=== PATIENT | female | born 1955 | race Caucasian/White ===

== ENCOUNTER 2018-11-23 08:57 | Day surgery (SDC) | payer OTHER ==
[2018-11-23 10:01] LABS: ADD MAN DIFF? NO
[2018-11-23 10:04] LABS: WHITE BLOOD COUNT 7.4 10^3/ul (4.8-10.8)
[2018-11-23 10:04] LABS: BASOPHILS % 0.4 % (0.0-2.0); EOSINOPHILS # 0.1 10^3/ul (0.0-0.5); EOSINOPHILS % 1.1 % (0.0-7.0); HEMATOCRIT 41.1 % (37.0-47.0); HEMOGLOBIN 13.5 g/dl (12.0-16.0); LYMPHOCYTES # 2.2 10^3/ul (0.8-2.9); LYMPHOCYTES % 29.9 % (15.0-51.0); MEAN CORPUSCULAR HEMOGLOBIN 29.2 pg (29.0-33.0); MEAN CORPUSCULAR HGB CONC 32.8 g/dl (32.0-37.0); MEAN PLATELET VOLUME 9.8 fl (7.4-10.4); MONOCYTE # 0.5 10^3/ul (0.3-0.9); MONOCYTES % 7.2 % (0.0-11.0); NEUTROPHIL # 4.5 10^3/ul (1.6-7.5); NEUTROPHILS % 61.1 % (39.0-77.0); PLATELET COUNT 248 10^3/UL (140-415); RED BLOOD COUNT 4.62 10^6/ul (4.20-5.40); RED CELL DISTRIBUTION WIDTH 12.8 % (11.5-14.5)
[2018-11-23 10:26] LABS: ALANINE AMINOTRANSFERASE 23 IU/L (13-69); ALBUMIN 4.2 g/dl (3.3-4.9); ALBUMIN/GLOBULIN RATIO 1.31; ALKALINE PHOSPHATASE 66 IU/L (42-121); ANION GAP 7 (5-13); ASPARTATE AMINO TRANSFERASE 25 IU/L (15-46); BILIRUBIN,INDIRECT 0.5 mg/dl (0-1.1); BILIRUBIN,TOTAL 0.5 mg/dl (0.2-1.3); BLOOD UREA NITROGEN 19 mg/dl (7-20); CALCIUM 9.9 mg/dl (8.4-10.2); CARBON DIOXIDE 30 mmol/L (21-31); CHLORIDE 104 mmol/L (97-110); Estimated GFR 55 mL/min (>60); GLUCOSE 99 mg/dl (70-220); POTASSIUM 4.7 mmol/L (3.5-5.1); SODIUM 141 mmol/L (135-144); TOTAL PROTEIN 7.4 g/dl (6.1-8.1)
[2018-11-23 10:28] LABS: CREATININE 1.02 mg/dl (0.44-1.00)
[2018-11-23 10:29] LABS: INR 0.86; PROTIME 11.8 Sec (11.9-14.9); PT RATIO 0.9
[2018-11-23 10:30] LABS: PARTIAL THROMBOPLASTIN TIME 29.4 Sec (23.0-35.0)
[2018-11-23] MEDS ORDERED: CEFAZOLIN 2 GM/50 ML (PMX) 50 ML IVPB (10:30)
[2018-11-23] MEDS ORDERED: SOD CHLORIDE 0.9% 1,000 ML IV (10:30)
[2018-11-23] MEDS ORDERED: FENTAnyl 50 MCG/ML VIAL (10:31)
[2018-11-23] MEDS ORDERED: PROPOFOL 100 ML (10:31)
[2018-11-23] MEDS ORDERED: LIDOCAINE 2% (SDV) 5 ML INJ (10:31)
[2018-11-23] MEDS: BUPIVACAINE 0.5%/EPI (SDV) 30 ML INJ (11:09)
[2018-11-23] MEDS ORDERED: OXYCODONE/ACETAMINOPHEN (5/325) TAB PO ×2 (11:30)
[2018-11-23] MEDS ORDERED: hydrALAzine 20 MG INJ IV (11:30)
[2018-11-23] MEDS ORDERED: EPHEDrine SULFATE 50 MG/5 ML SYG IV (11:30)
[2018-11-23] MEDS ORDERED: MIDAZOLAM 1 MG/ML 2 ML INJ IV (11:30)
[2018-11-23] MEDS ORDERED: FENTAnyl 50 MCG/ML VIAL IV ×3 (11:30)
[2018-11-23] MEDS ORDERED: ALBUTEROL 0.083% (NEB) 2.5 MG/3 ML AMP HHN (11:30)
[2018-11-23] MEDS ORDERED: DIPHENHYDRAMINE 50 MG INJ IV (11:30)
[2018-11-23] MEDS ORDERED: MEPERIDINE 25 MG INJ IV (11:30)
[2018-11-23] MEDS ORDERED: LABETALOL HCL 20MG INJ IV (11:30)
[2018-11-23] MEDS ORDERED: ONDANSETRON 4 MG INJ IV (11:30)
[2018-11-23] MEDS: NEOMYC/POLYMYX/BACIT 30 GM OINT (11:34)
== END 2018-11-23 13:13 | disposition home or self-care (01) ==
LOC: SDS 08:57
DX: L72.11 Pilar cyst (principal); I10 Essential (primary) hypertension; E11.9 Type 2 diabetes mellitus without complications; E03.9 Hypothyroidism, unspecified; Z79.84 Long term (current) use of oral hypoglycemic drugs
CPT/HCPCS: 11426; 71045; 80053; 82962; 85025; 85610; 85730; 88307; 93005